=== PATIENT | male | born 1960 | race American Indian/Alaskan Native ===

== ENCOUNTER 2022-04-05 13:40 | Emergency (ER) | payer SELFPAY ==
[2022-04-05] MEDS ORDERED: IBUPROFEN 600 MG TAB PO ONE (20:46)
[2022-04-05] MEDS ORDERED: ONDANSETRON 4 MG ODT TAB PO ONE (20:46)
[2022-04-05] MEDS ORDERED: oxyCODONE /ACETAMINOPHEN 5-325MG TAB PO ONE (20:46)
[2022-04-05] MEDS ORDERED: predniSONE 20 MG TAB PO ONE (20:46)
--- NOTE | 2022-04-05 21:11 | Emergency Department Report ---
ED Back Pain/Injury HPI - General Chief Complaint: Back Pain/Injury Stated Complaint: LOWER BACK PAIN Source: patient Limitations: No Limitations - History of Present Illness Initial Comments: Patient is a 62-year-old male with a history of chronic low back pain from an old injury due to heavy lifting at work presents to the ED with complaint of acute exacerbation of his chronic low back pain for the last 1 week, worse in the last 2 days. Patient states that he has been taking [id number] Tylenol with no relief. Patient states that in the last 12 hours, the pain has been burning in nature radiating to his left hip with constant severe pain. Patient denies dysuria, urinary frequency and urgency, traumatic injury, chest pain or shortness of breath, fever, chills, cough, sore throat, numbness and tingling or weakness of lower extremities bilaterally, hematuria, testicular pain, urinary or bowel incontinence and saddle paresthesia. MD Complaint: back pain -: Gradual, month(s) (8) Similar Symptoms Previously: Yes (chronic low back pain) Place: home Radiation: left leg (left hip) Severity: severe Severity scale (0 -10): 8 Quality: burning, sharp, aching Consistency: constant Improves With: none Worsens With: movement, walking Context: while lifting, turning/twisting, bending Associated Symptoms: denies other symptoms. denies: confusion, weakness, chest pain, numbness, difficulty walking, cough, difficulty urinating, diaphoresis, incontinence, fever/chills, constipation, headaches, abdominal pain, loss of appetite, nausea/vomiting, rash, shortness of breath, syncope Treatments Prior to Arrival: acetaminophen - Related Data Previous Rx's Medication Instructions Recorded Last Taken Type Ibuprofen [Motrin] 800 mg PO Q8HR PRN #30 tablet 04/05/22 Unknown Rx methOCARBAMOL [Robaxin TAB] 750 mg PO Q8H PRN #30 tab 04/05/22 Unknown Rx predniSONE [Deltasone] 40 mg PO QDAY #10 tab 04/05/22 Unknown Rx traMADoL [Ultram] 50 mg PO Q6HR PRN #12 tablet 04/05/22 Unknown Rx Allergies Allergy/AdvReac Type Severity Reaction Status Date / Time No Known Allergies Allergy Unverified 04/05/22 14:31 ED Review of Systems ROS: Stated complaint: LOWER BACK PAIN Other details as noted in HPI Constitutional: denies: chills, fever Eyes: denies: eye pain, eye discharge, vision change ENT: denies: ear pain, throat pain Respiratory: denies: cough, shortness of breath, wheezing Cardiovascular: denies: chest pain, palpitations Endocrine: no symptoms reported Gastrointestinal: denies: abdominal pain, nausea, diarrhea Genitourinary: denies: urgency, dysuria Musculoskeletal: back pain (LOWER), arthralgia. denies: joint swelling Skin: denies: rash, lesions Neurological: denies: headache, weakness, paresthesias Psychiatric: denies: anxiety, depression Hematological/Lymphatic: denies: easy bleeding, easy bruising ED Past Medical Hx - Past Medical History Previous Medical History?: Yes Additional medical history: chronic low back pain - Surgical History Past Surgical History?: No - Medications Home Medications: Home Medications Medication Instructions Recorded Confirmed Last Taken Type Ibuprofen [Motrin] 800 mg PO Q8HR PRN #30 tablet 04/05/22 Unknown Rx methOCARBAMOL [Robaxin TAB] 750 mg PO Q8H PRN #30 tab 04/05/22 Unknown Rx predniSONE [Deltasone] 40 mg PO QDAY #10 tab 04/05/22 Unknown Rx traMADoL [Ultram] 50 mg PO Q6HR PRN #12 tablet 04/05/22 Unknown Rx ED Physical Exam - General Limitations: No Limitations General appearance: alert, in no apparent distress - Head Head exam: Present: atraumatic, normocephalic, normal inspection - Eye Eye exam: Present: normal appearance, PERRL, EOMI Pupils: Present: normal accommodation - ENT ENT exam: Present: normal exam, normal orophraynx, mucous membranes moist, TM's normal bilaterally, normal external ear exam - Neck Neck exam: Present: normal inspection, full ROM - Respiratory Respiratory exam: Present: normal lung sounds bilaterally. Absent: respiratory distress, wheezes, rales, rhonchi, chest wall tenderness, accessory muscle use, decreased breath sounds - Cardiovascular Cardiovascular Exam: Present: regular rate, normal rhythm. Absent: systolic murmur, diastolic murmur, rubs, gallop - GI/Abdominal GI/Abdominal exam: Present: soft, normal bowel sounds. Absent: tenderness, guarding, rebound, hyperactive bowel sounds, hypoactive bowel sounds, mass - Extremities Exam Extremities exam: Present: normal inspection, full ROM, normal capillary refill - Back Exam Back exam: Present: normal inspection, full ROM, tenderness (Palpable lumbosacral paraspinal musculoskeletal tenderness), muscle spasm, paraspinal tenderness. Absent: CVA tenderness (R), CVA tenderness (L), vertebral tenderness - Neurological Exam Neurological exam: Present: alert, oriented X3, CN II-XII intact, normal gait, reflexes normal - Psychiatric Psychiatric exam: Present: normal affect, normal mood - Skin Skin exam: Present: warm, dry, intact, normal color. Absent: rash ED Course Vital Signs 04/05/22 14:27 Temperature 98.4 F Pulse Rate 72 Respiratory 18 Rate Blood Pressure 167/101 [Left] O2 Sat by Pulse 98 Oximetry ED Medical Decision Making - Radiology Data Radiology results: image reviewed - Medical Decision Making This is a 62-year-old male with a history of chronic low back pain from an old injury due to heavy lifting at work presents to the ED with complaint of acute exacerbation of his chronic low back pain for the last 1 week, worse in the last 2 days. Patient states that he has been taking [id number] Tylenol with no relief. Patient states that in the last 12 hours, the pain has been burning in nature radiating to his left hip with constant severe pain. In the ED, patient is alert and oriented x3 and is not in any distress. Patient was treated for pain in the ED and discharged home on pain medications. Patient was advised to follow-up with his primary care physician in 7 to 10 days for reevaluation or return to the ED immediately if symptoms get worse. - Differential Diagnosis Muscle spasm; muscle strain; sciatica; chronic pain Critical care attestation.: If time is entered above; I have spent that time in minutes in the direct care of this critically ill patient, excluding procedure time. ED Disposition Clinical Impression: Acute exacerbation of chronic low back pain, Spasm of muscle of lower back Chronic low back pain with sciatica Qualifiers: Back pain laterality: left Sciatica laterality: sciatica of left side Qualified Code(s): M54.42 - Lumbago with sciatica, left side; G89.29 - Other chronic pain Disposition: HOME / SELF CARE / HOMELESS Is pt being admited?: No Does the pt Need Aspirin: No Condition: Stable Instructions: Muscle Cramps and Spasms, [id number], Chronic Back Pain, Ocdt-ke-Ovnc, Sciatica, [id number]-[id number] Additional Instructions: Take medication with food, drink plenty of fluids, follow-up with your primary care physician in 7 to 10 days for reevaluation. Return to the ED immediately if symptoms get worse Prescriptions: predniSONE [Deltasone] 40 mg PO QDAY #10 tab Ibuprofen [Motrin] 800 mg PO Q8HR PRN #30 tablet PRN Reason: Pain , Severe (7-10) methOCARBAMOL [Robaxin TAB] 750 mg PO Q8H PRN #30 tab PRN Reason: Muscle Spasm traMADoL [Ultram] 50 mg PO Q6HR PRN #12 tablet PRN Reason: Pain Referrals: [facility] [Provider Group] - 7-10 days Forms: Work/School Release Form(ED) Time of Disposition: 21:18 Print Language: MALTESE
[2022-04-06 02:01] VITALS: BP 153/95
== END 2022-04-05 21:50 | disposition home or self-care (01) ==
LOC: ED 13:40
DX: M54.50 Low back pain, unspecified (principal)
CPT/HCPCS: 99282; J3490; Q0162

== ENCOUNTER 2022-04-11 09:05 | Emergency (ER) | payer OTHER ==
[2022-04-11 09:37] VITALS: BP 167/81
--- NOTE | 2022-04-11 11:58 | Emergency Department Report ---
ED Back Pain/Injury HPI - General Chief Complaint: Back Pain/Injury Stated Complaint: LOWE BACK PAIN Time Seen by Provider: 04/11/22 11:42 Source: patient Limitations: No Limitations - History of Present Illness Initial Comments: 62 yo comes to ER with LBP. He was here just a few days ago for same. He reports injury at work while lifting 25 pound piece of steel. He reports seeing a PT but then asks for a work note for today No fever no chills no neuro deficit- no incontinence ambulatory to ER he did not get his meds filled as given to home the other day in the ER MD Complaint: back pain Similar Symptoms Previously: Yes Place: home Severity scale (0 -10): 5 Quality: aching Consistency: intermittent Improves With: immobilization Worsens With: movement Context: while lifting Associated Symptoms: denies other symptoms - Related Data Previous Rx's Medication Instructions Recorded Last Taken Type Ibuprofen [Motrin] 800 mg PO Q8HR PRN #30 tablet 04/05/22 Unknown Rx methOCARBAMOL [Robaxin TAB] 750 mg PO Q8H PRN #30 tab 04/05/22 Unknown Rx predniSONE [Deltasone] 40 mg PO QDAY #10 tab 04/05/22 Unknown Rx traMADoL [Ultram] 50 mg PO Q6HR PRN #12 tablet 04/05/22 Unknown Rx Cyclobenzaprine [Flexeril] 10 mg PO TID PRN #10 tablet 04/11/22 Unknown Rx Allergies Allergy/AdvReac Type Severity Reaction Status Date / Time No Known Allergies Allergy Unverified 04/11/22 09:37 ED Review of Systems ROS: Stated complaint: LOWE BACK PAIN Other details as noted in HPI Comment: All other systems reviewed and negative ED Past Medical Hx - Past Medical History Previous Medical History?: Yes Additional medical history: chronic low back pain - Surgical History Past Surgical History?: No - Family History Family history: no significant - Social History Smoking Status: Never Smoker Substance Use Type: Alcohol - Medications Home Medications: Home Medications Medication Instructions Recorded Confirmed Last Taken Type Ibuprofen [Motrin] 800 mg PO Q8HR PRN #30 tablet 04/05/22 Unknown Rx methOCARBAMOL [Robaxin TAB] 750 mg PO Q8H PRN #30 tab 04/05/22 Unknown Rx predniSONE [Deltasone] 40 mg PO QDAY #10 tab 04/05/22 Unknown Rx traMADoL [Ultram] 50 mg PO Q6HR PRN #12 tablet 04/05/22 Unknown Rx Cyclobenzaprine [Flexeril] 10 mg PO TID PRN #10 tablet 04/11/22 Unknown Rx ED Physical Exam - General Limitations: No Limitations General appearance: alert, in no apparent distress - Head Head exam: Present: atraumatic, normocephalic - Eye Eye exam: Present: normal appearance - ENT ENT exam: Present: mucous membranes moist - Neck Neck exam: Present: normal inspection - Respiratory Respiratory exam: Present: normal lung sounds bilaterally. Absent: respiratory distress - Cardiovascular Cardiovascular Exam: Present: regular rate, normal rhythm. Absent: systolic murmur, diastolic murmur, rubs, gallop - GI/Abdominal GI/Abdominal exam: Present: soft, normal bowel sounds - Rectal Rectal exam: Present: deferred - Extremities Exam Extremities exam: Present: normal inspection - Back Exam Back exam: Present: normal inspection - Neurological Exam Neurological exam: Present: alert, oriented X3 - Psychiatric Psychiatric exam: Present: normal affect, normal mood - Skin Skin exam: Present: warm, dry, intact, normal color. Absent: rash ED Course Vital Signs 04/11/22 09:29 Temperature 98.0 F Pulse Rate 75 Respiratory 18 Rate Blood Pressure 167/81 [Left] O2 Sat by Pulse 99 Oximetry ED Medical Decision Making - Medical Decision Making Vital Signs 04/11/22 09:29 Temperature 98.0 F Pulse Rate 75 Respiratory 18 Rate Blood Pressure 167/81 [Left] O2 Sat by Pulse 99 Oximetry pt undergoing pt for his back per work comp he is out of his muscle relaxer taking motrin neurovasc intact ambulatory work note given dc home with dc plan of care including diet, meds, activity and follow up. he has been instructed to notify job of his follow up in ER. And to call his PT for immediate care. - Differential Diagnosis ac back pain sp injury at work Critical care attestation.: If time is entered above; I have spent that time in minutes in the direct care of this critically ill patient, excluding procedure time. ED Disposition Clinical Impression: Acute exacerbation of chronic low back pain Disposition: 01 HOME / SELF CARE / HOMELESS Is pt being admited?: No Does the pt Need Aspirin: No Condition: Stable Instructions: Chronic Pain, Adult Additional Instructions: CONTINUE HOME MOTRIN FOLLOW UP WITH PT TODAY MED ORDERED TODAY Prescriptions: Cyclobenzaprine [Flexeril] 10 mg PO TID PRN #10 tablet PRN Reason: Muscle Spasm Referrals: ELLY MORRISON MD [Staff Physician] - 3-5 Days TRICIA JC MD [Staff Physician] - 3-5 Days Forms: Work/School Release Form(ED) Time of Disposition: 11:58
[2022-04-11] MEDS ORDERED: CYCLOBENZAPRINE 10 MG TAB PO ONE (12:04)
[2022-04-11] MEDS ORDERED: IBUPROFEN 800 MG TAB PO ONE (12:04)
[2022-04-11] MEDS ORDERED: dexAMETHasone 4 MG/ML VIAL IM ONE (12:04)
== END 2022-04-11 12:34 | disposition home or self-care (01) ==
LOC: ED 09:05
DX: M54.50 Low back pain, unspecified (principal)
CPT/HCPCS: 99282; J1100